=== PATIENT | male | born 1955 | race Caucasian/White ===

== ENCOUNTER 2016-10-24 13:05 | Outpatient (CLI) | payer OTHER ==
--- NOTE | 2016-10-24 13:33 | DIAGNOSTIC IMAGING REPORT ---
PROCEDURE: XR CHEST 2 VIEW INDICATION: PULMONARY FIBROSIS TECHNIQUE: PA and lateral views. COMPARISON: None available FINDINGS: Previous sternotomy. Bilateral perihilar and subpleural fibrosis. Mid and upper lung ly clear. Heart size is normal. IMPRESSION: 1. Bilateral perihilar and subpleural fibrosis.
== END 2016-10-24 23:00 ==
LOC: XR SRH 13:05
DX: J84.112 Idiopathic pulmonary fibrosis (principal); E11.9 Type 2 diabetes mellitus without complications; I10 Essential (primary) hypertension